=== PATIENT | male | born 1985 | race African-American/Black ===

== ENCOUNTER 2022-12-07 10:29 | Emergency (ER) | payer SELFPAY ==
[2022-12-07 10:35] VITALS: BP 121/65; PULSE 77; RESP 18; TEMP 99; BMI 25.6
[2022-12-07 11:56] LABS: PH,URINE 5.5 (5.0-8.0); URINE APPEARANCE CLEAR; URINE BILIRUBIN NEGATIVE (NEGATIVE); URINE COLOR YELLOW; URINE GLUCOSE (UA) NEGATIVE (NEGATIVE); URINE KETONE NEGATIVE (NEGATIVE); URINE LEUK ESTERASE NEGATIVE (NEGATIVE); URINE NITRITE NEGATIVE (NEGATIVE); URINE PROTEIN NEGATIVE (NEGATIVE)
== END 2022-12-07 12:14 | disposition home or self-care (01) ==
LOC: JERFT 10:29
DX: L98.8 Other specified disorders of the skin and subcutaneous tissue (principal); N48.29 Other inflammatory disorders of penis; Z20.822 Contact with and (suspected) exposure to COVID-19
CPT/HCPCS: 0241U-QW; 36415; 81003; 87086; 87491; 87591; 99283-25